=== PATIENT | male | born 1980 ===

== ENCOUNTER 2017-08-13 18:15 | Emergency (ER) | payer OTHER ==
[2017-08-13] MEDS ORDERED: Ibuprofen TAB* 600 MG PO ONE (19:16)
[2017-08-13 19:17] VITALS: BP 168/84
--- NOTE | 2017-08-13 19:32 | UC ---
FLU HPI - HPI Summary HPI Summary: since last night pt with body aches, nausea, frontal drew, sinus congestion. Pt has taken APAP x 2 today with temp relief. Pt state spent day "in bed" No cp, sob mild cough. no w/r + sick contact with similar. No flu vaccine this year Pt's medications reviewed this visit - History of Current Complaint Chief Complaint: UCGeneralIllness Stated Complaint: FLU SYMPTOMS Time Seen by Provider: 08/13/17 19:23 Hx Obtained From: Patient Onset/Duration: Sudden Onset Severity Currently: Moderate Severity Initially: Moderate Pain Intensity: 8 Pain Scale Used: 0-10 Numeric Associated Signs & Symptoms: Positive: T Max - 102 Related Hx: Possible Flu/Infectious Exposure - Allergy/Home Medications Allergies/Adverse Reactions: Allergies Allergy/AdvReac Type Severity Reaction Status Date / Time No Known Allergies Allergy Verified 08/13/17 19:12 PMH/Surg Hx/FS Hx/Imm Hx Previously Healthy: Yes - Surgical History Surgical History: None - Family History Known Family History: Positive: Hypertension - Social History 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 Lives: With Family Alcohol Use: None Substance Use Type: None Smoking Status (MU): Never Smoked Tobacco Review of Systems Constitutional: Fever, Chills, Fatigue Skin: Negative ENT: Sore Throat, Sinus Congestion Respiratory: Cough Cardiovascular: Negative Gastrointestinal: Nausea Genitourinary: Negative Motor: Negative Musculoskeletal: Arthralgia, Myalgia Neurological: Headache All Other Systems Reviewed And Are Negative: Yes Physical Exam Triage Information Reviewed: Yes Appearance: Well-Nourished, Other: - tired appearing Vital Signs: Initial Vital Signs Temp 101.5 F 08/13/17 19:12 Pulse 96 08/13/17 19:12 Resp 22 08/13/17 19:12 BP 168/84 08/13/17 19:12 Pulse Ox 99 08/13/17 19:12 Vital Signs Reviewed: Yes Eye Exam: Normal Eyes: Positive: Conjunctiva Clear ENT Exam: Normal ENT: Positive: Normal ENT inspection, Hearing grossly normal, Other - turbinates inflammed and boggy + PND no erythema, no exudate Dental Exam: Normal Neck exam: Normal Neck: Positive: Supple, Nontender, No Lymphadenopathy Respiratory Exam: Normal Respiratory: Positive: Chest non-tender, Lungs clear, Normal breath sounds, No respiratory distress, No accessory muscle use Cardiovascular Exam: Normal Cardiovascular: Positive: RRR, No Murmur Abdominal Exam: Normal Abdomen Description: Positive: Nontender, No Organomegaly, Soft Bowel Sounds: Positive: Present Musculoskeletal Exam: Normal Musculoskeletal: Positive: Strength Intact Neurological Exam: Normal Neurological: Positive: Alert Psychological Exam: Normal Psychological: Positive: Normal Response To Family Skin Exam: Normal Flu Course/Dx - Course Course Of Treatment: pt with body aches, frontal headache, fever, chills and cough since yesterday. + flu. hydrate. motrin/apap. otc supportive tx. flonase. tamiflu. secretion precations. humified air. pt's blood pressure elevated today - recommend pcp f/u - Differential Dx/Diagnosis Provider Diagnoses: influenza Discharge - Sign-Out/Discharge Documenting (check all that apply): Discharge - Discharge Plan Condition: Stable Disposition: HOME Prescriptions: Fluticasone NASAL SPRAY 50MCG* [Flonase NASAL SPRAY 50MCG*] 2 spray BOTH NARES DAILY #1 btl Oseltamivir CAP* [Tamiflu CAP*] 75 mg PO BID #10 cap Patient Education Materials: Influenza (ED) Referrals: [facility] [Outside] No Primary Care Phys,NOPCP [Primary Care Provider] - Additional Instructions: - Stay well hydrated. Drink plenty of non-alcoholic, non-caffinated beverages. - Alternate ibuprofen (Advil, Motrin) 600mg and Tylenol every 3 hours for pain or fever. Take with food. Do NOT take for more than 4-5 days. - These infections are spread by secretions - do NOT share eating or drinking utensils - clean items you share with other people such as cell phones, computer mouse, TV remote, computer tablets,etc. Once you start to feel better, change your toothbrush and your pillowcase. - use nasal spray as instructed -- take Tamiflu as prescirbed - humidify the air in the room where you sleep - boil water, run a hot steam shower, vaporizer, cups of water by heat register - okay to take over the counter decongestant and cough medication - get plenty of restful sleep. - contact your doctor or return with questions or concerns - Billing Disposition and Condition Condition: STABLE Disposition: HOME
== END 2017-08-13 19:50 | disposition home or self-care (01) ==
LOC: UCCORT 18:15
DX: J10.1 Influenza due to other identified influenza virus with other respiratory manifestations (principal)
CPT/HCPCS: 87502; 99202; A9270-GY; G0463